=== PATIENT | male | born 1990 | race Caucasian/White ===

== ENCOUNTER 2024-04-11 12:43 | Inpatient (IN) | payer OTHER, SELFPAY ==
[2024-04-11] VITALS (7 sets, daily range): BP systolic 116–145; BP diastolic 76–89; PULSE 58–107; RESP 17–18; TEMP 36.5–36.9; O2SAT 96–99; BMI 29.0; BMI 25.5
--- NOTE | 2024-04-11 14:20 | EDS_ITS ---
<Statement entered by Rose Murdock MD - 04/11/24 22:06> I have personally performed a face to face assessment of the patient and have reviewed the AMANUEL Note. Patient was seen and examined with AMANUEL Dinorah Colmenares. I personally saw and examined this patient and agree with documentation. treatment, and plan. My luke findings are below: HPI: This is a 33-year-old male who presents to the emergency department for detox. The patient admits to using heroin and cocaine. The patient states he snorts and smokes the drugs of choice. No IV drug use. He denies any alcohol use. He states he does smoke tobacco. The patient states that he has been using for nearly 10 years. The patient states that he would like to be detoxed. He is here with his mother. He states he feels very anxious with some pain in his lower extremities, nausea and vomiting. No chest pain or dyspnea. Physical Exam: GEN: Alert, NAD HEAD: NC, AT HEENT: Moist mucous membranes. NECK: Supple, Full range of motion. CHEST: Normal, nontender HEART: Regular rate and rhythm. Normal capillary refill. LUNGS: Clear to auscultation bilaterally. ABD: Soft, NT, ND EXT: No cyanosis, edema. Normal ROM. Strength testing intact SKIN: Warm, dry. No rashes or lesions NEURO: Grossly intact. No deficits PSYCH: Anxious MDM: Patient presents to the emergency department for detox from heroin and cocaine. The patient was given IV fluids and Zofran in the emergency department. I also gave him 1 mg of Ativan as he was extremely anxious. Patient medically cleared in the emergency department will be admitted for detox. Rose Murdock M.D. HPI History of Present Illness Chief Complaint: Substance Abuse Narrative Narrative: 33-year-old male presents requesting detox from snorting heroin. Last use was 3 to 4 days ago. He states he has tried to detox at home before but around day 4 gets body aches and nauseous and cannot keep down fluids with diarrhea. He has never been to inpatient detox before. He is brought in by his mom for support. He states he also smokes about a pack of cigarettes a day and occasionally uses cocaine. He denies IV drug use. He has no chest pain or shortness of breath. PFSH PFSH Home Medications ?Medication ?Instructions ?Recorded ?Last Taken ?Type NK 04/11/24 Unknown History Allergy/AdvReac Type Severity Reaction Status Date / Time No Known Allergies Allergy Verified 04/11/24 12:47 Social History Smoking Status: Current every day smoker tobacco type: cigarettes ROS ROS ED ROS Narrative Constitutional: Negative for fever, chills, malaise. CVS: Negative for chest pain. Respiratory: Negative for shortness of breath. GI: Positive for nausea, vomiting, diarrhea. Negative for abdominal pain. EXAM Physical Exam Narrative Exam Narrative: CONST: Patient sitting in no acute distress. Flushed appearance. EYES: Normal inspection. NECK: Normal inspection. RESP: No respiratory distress, CTAB. CVS: Regular rate and rhythm, no murmur, no gallop. ABD: Soft and nontender, no guarding or rebound, nondistended SKIN: Color normal, no rash, warm, dry, intact. EXTREMITIES: Normal appearance, no pedal edema. NEURO: Alert and answering questions appropriately. PSYCH: Normal affect. Const Vital Signs: 04/11/24 12:44 04/11/24 15:00 04/11/24 16:00 Temperature 98.1 F Temperature Source Temporal Pulse Rate 100 58 L 60 Respiratory Rate 17 18 18 Blood Pressure 134/89 H 143/89 H 145/76 H Blood Pressure Mean 104 107 99 Pulse Ox 96 97 Oxygen Delivery Method Room Air Room Air 04/11/24 16:03 Temperature 98.4 F Temperature Source Pulse Rate 62 Respiratory Rate 18 Blood Pressure 145/76 H Blood Pressure Mean 99 Pulse Ox 97 Oxygen Delivery Method MDM MDM MDM Narrative Medical decision making narrative: History gathered from: Patient and mom Patient snorts heroin and cocaine. Last use around 3 days ago. Complains of bodyaches, nausea vomiting, and diarrhea. He appears well and nontoxic. Afebrile stable vital signs. Exam overall benign. CBC shows normal white count of 7.1, hemoglobin slightly elevated 17.1, normal electrolytes and renal function. Alcohol negative. Drug screen ordered. I ordered Zofran ODT but afterwards he said he cannot drink fluids so I ordered 1 L IV fluids. When the attending evaluated he complained of anxiety and was also given Bentyl and Ativan. Case was discussed with the hospitalist for admission for opiate detox. Lab Data Attestation: I reviewed the patient's lab results. Labs: Laboratory Results - last 24 hr 04/11/24 15:07 WBC 7.1 RBC 5.77 Hgb 17.1 H Hct 49.0 MCV 84.9 MCH 29.6 MCHC 34.9 RDW Std Deviation 37.2 RDW Coeff of Suresh 12.1 Plt Count 288 MPV 9.3 Immature Gran % (Auto) 0.600 Neut % (Auto) 86.2 H Lymph % (Auto) 9.7 L [place] % (Auto) 3.0
[2024-04-11] MEDS: Ondansetron ODT 4 MG Tablet PO (14:44)
[2024-04-11] MEDS: 0.9% Normal Saline (1000mL) 1,000 ML 999 ML IV (15:03)
[2024-04-11 15:16] LABS: Absolute Lymphocyte Count 0.69 X10^3/uL (0.83-4.51); Absolute Neutrophil Count 6.1 X10^3/uL (2.0-7.7); Basophil# 0.03 X10^3/uL; Basophil% 0.4 % (0-1); Eosinophil# 0.01 X10^3/uL; Eosinophils% 0.1 % (0-5); Hemoglobin 17.1 g/dL (13.0-16.5); Lymphocyte # 0.69 X10^3/ul (0.83-4.51); Lymphocyte % 9.7 % (19-41); Mean Corp Hgb Conc 34.9 g/dL (32-36); Mean Corpuscular Hgb 29.6 pg (27.0-32.0); Mean Corpuscular Volume 84.9 fL (80-94); Mean Platelet Vol. 9.3 fl (6.2-12.0); Monocyte# 0.21 X10^3/uL; NRBC Flagged by Analyzer 0 % (0-5); Neutrophil # 6.11 X10^3/uL (2.7-7.7); Neutrophil % 86.2 % (47-70); Platelet Count 288 K/mm3 (150-450); RBC Distribution Width CV 12.1 % (11.6-14.6); RBC Distribution Width SD 37.2 fl (35.1-43.9); Red Blood Count 5.77 M/mm3 (4.6-6.2); White Blood Count 7.1 K/mm3 (4.4-11.0)
[2024-04-11] MEDS: LORazepam 2 MG/ML Syringe 1 MG IV (15:47)
[2024-04-11] MEDS: Dicyclomine 10 MG Capsule 20 MG PO (15:47)
[2024-04-11 15:50] LABS: AST(SGOT) 15 U/L (15-37); Alanine Aminotransfer ALT/SGPT 17 U/L (16-61); Albumin, Serum 4.3 g/dL (3.2-5.0); Alkaline Phosphatase 110 U/L (45-117); Anion Gap 8 (5-15); BUN 16 mg/dL (7-18); BUN/Creat Ratio 16.5 RATIO (10-20); Calcium,Total 9.4 mg/dL (8.5-10.1); Chloride 107 mmol/L (98-107); Creatinine, Serum 0.97 mg/dL (0.70-1.30); EST Glomerular Filtration Rate 95 mL/min (>60); Est Glom Filt Rate - Afr Amer 115 mL/min (>60); Globulin 4.2 g/dL (2.2-4.2); Glucose 109 mg/dL (74-106); Potassium 3.6 mmol/L (3.5-5.1); Protein, Total 8.5 g/dL (6.4-8.2); Sodium Level 139 mmol/L (136-145)
--- NOTE | 2024-04-11 16:04 | NURSING ---
DR BINTA SUTHERLAND
--- NOTE | 2024-04-11 16:06 | HP.PCM.HOS_ITS ---
HPI - General General Date of Admission: 04/11/24 Date of Service: 04/11/24 Chief Complaint: Opiate detox HPI Narrative ANTONIO SMALL, is a 33 M who presented to [facility] ED on 04/11/2024 requesting opiate detoxification. Saw patient at bedside in the ED, patient's mom present. Patient was flushed in the face and mildly agitated appearing but was otherwise laying comfortably in bed, conversing normally and in no acute distress. Patient has been snorting heroin on a regular basis. Last use was 3 to 4 days ago. He was trying to detox at home but has had significant nausea with vomiting and bodyaches and has not been able to keep hardly any food or drink down. Has also been having a fair amount of diarrhea. Patient has never been to inpatient detox before. Was brought in by his mom for support. Patient otherwise has no significant past medical history, takes no home medications. He does smoke about a pack of cigarettes daily and occasionally uses cocaine. Denies any IV drug use. Denies any other pain or discomfort currently. Denies any fevers or chills. No other acute concerns at this time. Vitals in ED notable for mild sinus tachycardia with heart rate in the 100s, otherwise hemodynamically stable. Labs with hemoglobin 17.1, otherwise unremarkable. No imaging was obtained in the ED. [facility] Medical History Substance abuse Anxiety Depression Smoker Home Medications ?Medication ?Instructions ?Recorded ?Last Taken ?Type NK 04/11/24 Unknown History Allergy/AdvReac Type Severity Reaction Status Date / Time No Known Allergies Allergy Verified 04/11/24 12:47 Social History Smoking Status: Current every day smoker tobacco type: cigarettes ROS Constitutional Constitutional: Reports fatigue and malaise; Denies chills or fever(s) Cardiovascular Cardiovascular: Denies chest pain Respiratory/Chest Respiratory/Chest: Denies shortness of breath at rest Gastrointestinal Gastrointestinal: Reports diarrhea, nausea and vomiting; Denies abdominal pain Musculoskeletal Musculoskeletal: Reports myalgias Neurologic Neurologic: Denies dizziness, focal weakness or headache(s) Psychiatric Psychiatric: Reports anxiety Vital Signs Vital Signs Vital Signs: 04/11/24 12:44 04/11/24 15:00 04/11/24 16:00 Temperature 98.1 F Temperature Source Temporal Pulse Rate 100 58 L 60 Respiratory Rate 17 18 18 Blood Pressure 134/89 H 143/89 H 145/76 H Blood Pressure Mean 104 107 99 Pulse Ox 96 97 Oxygen Delivery Method Room Air Room Air 04/11/24 16:03 Temperature 98.4 F Temperature Source Pulse Rate 62 Respiratory Rate 18 Blood Pressure 145/76 H Blood Pressure Mean 99 Pulse Ox 97 Oxygen Delivery Method Weight Weight: 99.79 kg Body Mass Index (BMI) 29.0 Physical Exam Const alert, oriented x3, no apparent distress and average body habitus Constitutional Narrative: Younger male, appears mildly agitated and flushed in the face, otherwise laying comfortably in bed, conversing normally, no acute distress. General Appearance: cooperative and comfortable HEENT normocephalic, head/scalp atraumatic, hearing grossly normal bilaterally, nasal mucous membranes and turbinates normal and moist oral mucous membranes Eyes PERRL, EOMs intact bilaterally and conjunctivae normal Neck full ROM Chest inspection of chest normal Resp normal respiratory effort, normal air movement, no use of accessory muscles and clear to auscultation bilaterally Cardio no murmurs and peripheral pulses 2+ throughout Cardio Narrative: Tachycardic, regular rhythm. GI normal to inspection, nondistended, normoactive bowel sounds, soft to palpation, non-tender and non-distended Back/Spine normal ROM Extremity normal to inspection, full ROM and no pedal edema Skin no rashes or lesions noted Neuro moves all extremities and no focal motor deficits Speech: speech normal Psych mental status grossly normal Mood & Affect: anxious Results Lab / Micro Data 04/11/24 15:07 04/11/24 15:07 Labs: Laboratory Results - last 24 hr 04/11/24 15:07: WBC 7.1, RBC 5.77, Hgb 17.1 H, Hct 49.0, MCV 84.9, MCH 29.6, MCHC 34.9, RDW Std Deviation 37.2, RDW Coeff of Suresh 12.1, Plt Count 288, MPV 9.3, Immature Gran % (Auto) 0.600, Neut % (Auto) 86.2 H, Lymph % (Auto) 9.7 L, [place] % (Auto) 3.0, Eos % (Auto) 0.1, Baso % (Auto) 0.4, Absolute Neuts (auto) 6.1, Absolute Lymphs (auto) 0.69 L, Nucleated RBC % 0, Sodium 139, Potassium 3.6, Chloride 107, Carbon Dioxide 24.0, Anion Gap 8, BUN 16, Creatinine 0.97, Estim Creat Clear Calc 134.60, Est GFR (MDRD) Af Amer 115, Est GFR (MDRD) Non-Af 95, BUN/Creatinine Ratio 16.5, Glucose 109 H, Calcium 9.4, Total Bilirubin 1.00, AST 15, ALT 17, Alkaline Phosphatase 110, Total Protein 8.5 H, Albumin 4.3, Globulin 4.2, Albumin/Globulin Ratio 1.0, Ethyl Alcohol 5.0 Assessment & Plan Assessment/Plan (1) Opioid abuse: (2) Desire for detoxification: PLAN: Plan Patient is a 33-year-old male who presented [facility] ED on 04/11/2024 for opiate detoxification. 1. Opiate abuse with request for detoxification ? Admit under inpatient status to [facility]. Reported snorting heroin regularly, last use 3 to 4 days ago. No IV drug use. Urine drug screen pending. Addiction medicine consulted. Will start Subutex taper with other as needed medications per opiate withdrawal order set. Monitor. 2. Tobacco abuse ? Current smoker, smokes about 1 pack/day. Nicotine patch and gum ordered per patient request. Encouraged cessation. DVT prophylaxis: Low risk, ambulate CODE STATUS: Full code, verified Expected disposition: Home, 2 to 3 days Total clinical time spent by myself addressing the patient's medical issues, reviewing all the data, and collaborating with patient's care team: 40 minutes. Charges/Coding Visit Charges Inpatient E&M: 37710 Init Hosp L1
--- NOTE | 2024-04-11 16:09 | NURSING ---
MED SURG [facility] OPIATE DETOX
[2024-04-11] MEDS: hydrOXYzine PAM 25 MG Capsule 50 MG PO (17:34)
[2024-04-11] MEDS: Acetaminophen 325 MG Tablet 650 MG PO (17:34)
[2024-04-11] MEDS: Buprenorphine HCl 2 MG TAB.SUBL SL (17:35)
[2024-04-11] MEDS: Methocarbamol 750 MG Tablet PO (17:35)
[2024-04-12] MEDS: traZODone 100 MG Tablet PO ×2 (00:37→19:56)
[2024-04-12] MEDS: Buprenorphine HCl 2 MG TAB.SUBL SL ×3 (00:38→16:51)
[2024-04-12 02:02] LABS: Amphetamine Urine VISTA NEGATIVE (<1000 ng/mL); Barbiturate Urine VISTA NEGATIVE (< 200 ng/mL); Benzodiazepine Urine VISTA NEGATIVE (< 200 ng/mL); Cocaine Urine VISTA POSITIVE (< 300 ng/mL); Ecstacy Urine VISTA NEGATIVE (< 500 ng/mL); Methadone Urine VISTA NEGATIVE (< 300 ng/mL); PCP Urine VISTA NEGATIVE (< 25 ng/mL); THC Urine VISTA NEGATIVE (< 50 ng/mL); Vista UDS pH Range 5
[2024-04-12 06:54] LABS: Hematocrit 46.2 % (40-54); Hemoglobin 16.5 g/dL (13.0-16.5); Mean Corp Hgb Conc 35.7 g/dL (32-36); Mean Corpuscular Hgb 29.9 pg (27.0-32.0); Mean Corpuscular Volume 83.7 fL (80-94); Mean Platelet Vol. 9.4 fl (6.2-12.0); Platelet Count 252 K/mm3 (150-450); RBC Distribution Width CV 12.1 % (11.6-14.6); RBC Distribution Width SD 36.8 fl (35.1-43.9); Red Blood Count 5.52 M/mm3 (4.6-6.2); White Blood Count 6.8 K/mm3 (4.4-11.0)
[2024-04-12 07:29] LABS: Anion Gap 5 (5-15); BUN 12 mg/dL (7-18); BUN/Creat Ratio 14.5 RATIO (10-20); Calcium,Total 9.3 mg/dL (8.5-10.1); Chloride 113 mmol/L (98-107); Creatinine, Serum 0.83 mg/dL (0.70-1.30); EST Glomerular Filtration Rate 114 mL/min (>60); Est Glom Filt Rate - Afr Amer 137 mL/min (>60); Estimated Creatinine Clearance 147.18 ml/min; Glucose 108 mg/dL (74-106); Potassium 3.6 mmol/L (3.5-5.1); Sodium Level 141 mmol/L (136-145)
[2024-04-12 07:30] VITALS: O2SAT 98
[2024-04-12] MEDS: Methocarbamol 750 MG Tablet PO (07:36)
[2024-04-12] MEDS: Gabapentin 300 MG Capsule PO (07:36)
[2024-04-12 08:09] VITALS: BP 124/96; PULSE 89; RESP 16; TEMP 36.8; O2SAT 100
--- NOTE | 2024-04-12 10:54 | CASEMGMT ---
Sarahi from [place] called to confirm pt is at hospital and is safe. Asked to speak with pt, provided phone to pt for Sarahi to speak with him. Pt will put deputy coroner light when finished. Charge nurse aware.
--- NOTE | 2024-04-12 11:17 | ADDICTION ---
Addiction therapist met with client to complete RAMP assessments. All assessments were completed and an addiction workbook was given for pt to go over. Pt reports that he spoke with a coordinator at the [facility] in [place]. He plans to do outpatient treatment. The [place] contacted him here in the hospital to discuss follow up.
[2024-04-12] MEDS: Acetaminophen 325 MG Tablet 650 MG PO (11:32)
[2024-04-12] MEDS: hydrOXYzine PAM 25 MG Capsule 50 MG PO ×2 (11:32→19:56)
--- NOTE | 2024-04-12 11:32 | PN.HOSP_ITS ---
Reason for Visit Reason for Visit: Diagnoses Opioid abuse, uncomplicated (04/11/24) Subjective Subjective No acute events overnight. Saw patient at bedside this morning. Patient was laying comfortably in bed, conversing normally, in no acute distress. He appeared less agitated today than yesterday. He stated that the Subutex and other as needed medications that he took were helpful for his withdrawal symptoms. He admitted that he still was not that hungry or thirsty but he was able to keep some food and drink down this morning. No other acute concerns today. Objective Data Objective Data Vital Signs: Vital Signs Temp Pulse Resp BP Pulse Ox O2 Del Method 98.2 F 89 16 124/96 H 100 Room Air 04/12/24 08:09 04/12/24 08:09 04/12/24 08:09 04/12/24 08:09 04/12/24 08:09 04/12/24 08:09 Oxygen Delivery Method Room Air Weight: 90.4 kg Body Mass Index (BMI) 25.5 Intake & Output: Intake and Output for Last 24 Hours 04/10/24 04/11/24 04/12/24 23:59 23:59 23:59 Intake Total 1600 / 1600 Balance 1600 / 1600 Lab / Micro Data 04/12/24 06:36 04/12/24 06:36 Labs: Laboratory Results - last 24 hr 04/11/24 15:07: WBC 7.1, RBC 5.77, Hgb 17.1 H, Hct 49.0, MCV 84.9, MCH 29.6, MCHC 34.9, RDW Std Deviation 37.2, RDW Coeff of Suresh 12.1, Plt Count 288, MPV 9.3, Immature Gran % (Auto) 0.600, Neut % (Auto) 86.2 H, Lymph % (Auto) 9.7 L, [place] % (Auto) 3.0, Eos % (Auto) 0.1, Baso % (Auto) 0.4, Absolute Neuts (auto) 6.1, Absolute Lymphs (auto) 0.69 L, Nucleated RBC % 0, Sodium 139, Potassium 3.6, Chloride 107, Carbon Dioxide 24.0, Anion Gap 8, BUN 16, Creatinine 0.97, Estim Creat Clear Calc 134.60, Est GFR (MDRD) Af Amer 115, Est GFR (MDRD) Non-Af 95, BUN/Creatinine Ratio 16.5, Glucose 109 H, Calcium 9.4, Total Bilirubin 1.00, AST 15, ALT 17, Alkaline Phosphatase 110, Total Protein 8.5 H, Albumin 4.3, Globulin 4.2, Albumin/Globulin Ratio 1.0, Ethyl Alcohol 5.0 04/12/24 01:20: Urine Opiates Screen NEGATIVE, Urine Methadone Screen NEGATIVE, Ur Barbiturates Screen NEGATIVE, Ur Phencyclidine Scrn NEGATIVE, Ur Amphetamines Screen NEGATIVE, MDMA (Ecstasy) Screen NEGATIVE, U Benzodiazepines Scrn NEGATIVE, Urine Cocaine Screen POSITIVE H, U Cannabinoids Screen NEGATIVE, Ur Drug Screen Comment 04/12/24 06:36: WBC 6.8, RBC 5.52, Hgb 16.5, Hct 46.2, MCV 83.7, MCH 29.9, MCHC 35.7, RDW Std Deviation 36.8, RDW Coeff of Suresh 12.1, Plt Count 252, MPV 9.4, Sodium 141, Potassium 3.6, Chloride 113 H, Carbon Dioxide 23.0, Anion Gap 5, BUN 12, Creatinine 0.83, Estim Creat Clear Calc 147.18, Est GFR (MDRD) Af Amer 137, Est GFR (MDRD) Non-Af 114, BUN/Creatinine Ratio 14.5, Glucose 108 H, Calcium 9.3 Physical Exam Const alert, oriented x3, no apparent distress and average body habitus Constitutional Narrative: Younger male, laying comfortably in bed, conversing normally, in no acute distress. General Appearance: cooperative and comfortable HEENT normocephalic, head/scalp atraumatic, hearing grossly normal bilaterally, nasal mucous membranes and turbinates normal and moist oral mucous membranes Eyes PERRL, EOMs intact bilaterally and conjunctivae normal Neck full ROM Chest inspection of chest normal Resp normal respiratory effort, normal air movement, no use of accessory muscles and clear to auscultation bilaterally Cardio regular rate, regular rhythm, no murmurs and peripheral pulses 2+ throughout GI normal to inspection, nondistended, normoactive bowel sounds, soft to palpation, non-tender and non-distended Back/Spine normal ROM Extremity normal to inspection, full ROM and no pedal edema Skin no rashes or lesions noted Neuro moves all extremities and no focal motor deficits Speech: speech normal Psych mental status grossly normal Mood & Affect: anxious Assessment & Plan Assessment/Plan (1) Opioid abuse: (2) Desire for detoxification: PLAN: Plan Patient is a 33-year-old male who presented [facility] ED on 04/11/2024 for opiate detoxification. 1. Opiate abuse with request for detoxification, cocaine abuse ? Reported snorting heroin regularly, last use 3 to 4 days prior to admission. No IV drug use. Also reported to occasionally starting cocaine. Urine drug screen positive only for cocaine. Started on Subutex taper with other as needed medications per opiate withdrawal order set on admit with good control of withdrawal symptoms. Addiction medicine following, planning for outpatient therapy on discharge. 2. Tobacco abuse ? Current smoker, smokes about 1 pack/day. Nicotine patch and gum ordered per patient request. Encouraged cessation. DVT prophylaxis: Low risk, ambulate CODE STATUS: Full code, verified Expected disposition: Home, 1 to 2 days Total clinical time spent by myself addressing the patient's medical issues, reviewing all the data, and collaborating with patient's care team: 25 minutes. Charges/Coding Visit Charges Inpatient E&M: 51632 Subs Hosp L1
[2024-04-12 11:37] VITALS: BP 126/83; PULSE 65; RESP 16; TEMP 36.8; O2SAT 100
[2024-04-12 15:16] VITALS: BP 133/86; PULSE 74; RESP 16; TEMP 36.8; O2SAT 99
[2024-04-12] MEDS: Dicyclomine 10 MG Capsule 20 MG PO (16:51)
[2024-04-12] MEDS: cloNIDine HCl 0.1 MG Tablet PO (19:56)
[2024-04-12 20:32] VITALS: BP 122/76; PULSE 63; RESP 16; TEMP 36.9; O2SAT 100
[2024-04-13] MEDS: Buprenorphine HCl 2 MG TAB.SUBL SL ×3 (01:00→17:24)
[2024-04-13 04:50] VITALS: BP 133/90; PULSE 63; RESP 18; TEMP 36.7; O2SAT 100
[2024-04-13] MEDS: Methocarbamol 750 MG Tablet PO ×3 (04:50→17:24)
[2024-04-13] MEDS: hydrOXYzine PAM 25 MG Capsule 50 MG PO ×3 (04:50→17:24)
[2024-04-13 08:14] VITALS: O2SAT 96
[2024-04-13 09:16] VITALS: BP 128/92; PULSE 69; RESP 16; TEMP 36.8; O2SAT 100
[2024-04-13] MEDS: Gabapentin 300 MG Capsule PO (09:27)
[2024-04-13] MEDS: cloNIDine HCl 0.1 MG Tablet PO ×2 (09:27→17:24)
[2024-04-13] MEDS: Ondansetron 8 MG Tablet PO (09:27)
[2024-04-13] MEDS: Dicyclomine 10 MG Capsule 20 MG PO ×2 (09:27→17:24)
--- NOTE | 2024-04-13 12:39 | PCM.PN.HOSP ---
Reason for Visit Reason for Visit: Diagnoses Opioid abuse, uncomplicated (04/11/24) Subjective Subjective No acute events overnight. Saw patient at bedside this morning. Sitting up comfortably in bed, conversing normally, in no acute distress. Continues to feel improved from previous days. Withdrawal symptoms are well-controlled on Subutex and other as needed medications per opiate withdrawal order set. No other acute concerns today. Objective Data Objective Data Vital Signs: Vital Signs Temp Pulse Resp BP Pulse Ox O2 Del Method 98.3 F 69 16 128/92 H 100 Room Air 04/13/24 09:16 04/13/24 09:16 04/13/24 09:16 04/13/24 09:16 04/13/24 09:16 04/13/24 09:16 Oxygen Delivery Method Room Air Weight: 90.4 kg Body Mass Index (BMI) 25.5 Intake & Output: Intake and Output for Last 24 Hours 04/11/24 04/12/24 04/13/24 23:59 23:59 23:59 Intake Total 1600 / 1600 650 / 650 Balance 1600 / 1600 650 / 650 Medical Nutrition Assessment Dietitian: Malnutrition Criteria Met Start: 04/12/24 13:08 Freq: Status: Active Protocol: Document 04/12/24 13:08 SLA (Rec: 04/12/24 13:08 SLA [id number]) Nutrition Malnutrition Evidence of Malnutrition Exists Yes Malnutrition (severe): Acute Illness/Injury Evidenced By Suboptimal Energy Intake ( Severe),Weight Loss (Severe) Clinical Problem Acute Disease or Injury Related Malnutrition Etiology related to substance abuse and inadequate energy intake Signs/Symptoms as evidenced by ~7% wt loss x < 1 month and <75% po intake in past 5 days Status Active Problem Recommendation Dietitian Recommendations/Changes Continue liberal regular diet Will order vanilla ensure plus high protein tid w/ meals for increased nutrition if consumed. Lab / Micro Data 04/12/24 06:36 04/12/24 06:36 Physical Exam Const alert, oriented x3, no apparent distress and average body habitus Constitutional Narrative: Younger male, laying comfortably in bed, conversing normally, in no acute distress. General Appearance: cooperative and comfortable HEENT normocephalic, head/scalp atraumatic, hearing grossly normal bilaterally, nasal mucous membranes and turbinates normal and moist oral mucous membranes Eyes PERRL, EOMs intact bilaterally and conjunctivae normal Neck full ROM Chest inspection of chest normal Resp normal respiratory effort, normal air movement, no use of accessory muscles and clear to auscultation bilaterally Cardio regular rate, regular rhythm, no murmurs and peripheral pulses 2+ throughout GI normal to inspection, nondistended, normoactive bowel sounds, soft to palpation, non-tender and non-distended Back/Spine normal ROM Extremity normal to inspection, full ROM and no pedal edema Skin no rashes or lesions noted Neuro moves all extremities and no focal motor deficits Speech: speech normal Psych mental status grossly normal Mood & Affect: anxious Assessment & Plan Assessment/Plan (1) Opioid abuse: (2) Desire for detoxification: PLAN: Plan Patient is a 33-year-old male who presented [facility] ED on 04/11/2024 for opiate detoxification. 1. Opiate abuse with request for detoxification, cocaine abuse ? Reported snorting heroin regularly, last use 3 to 4 days prior to admission. No IV drug use. Also reported to occasionally starting cocaine. Urine drug screen positive only for cocaine. Started on Subutex taper with other as needed medications per opiate withdrawal order set on admit with good control of withdrawal symptoms. Addiction medicine following, planning for outpatient therapy on discharge. 2. Tobacco abuse ? Current smoker, smokes about 1 pack/day. Nicotine patch and gum ordered per patient request. Encouraged cessation. DVT prophylaxis: Low risk, ambulate CODE STATUS: Full code, verified Expected disposition: Home, 1 to 2 days Total clinical time spent by myself addressing the patient's medical issues, reviewing all the data, and collaborating with patient's care team: 25 minutes. Charges/Coding Visit Charges Inpatient E&M: 71497 [facility] Hosp L1
--- NOTE | 2024-04-13 15:28 | CASEMGMT ---
Social Work EARLENE Mcclain from the [place] called EARLENE, let EARLENE know if anything is needed at discharge to call her: [phone], [id number]. For any follow up appts, she states to call Enrrique: [phone], [phone]. EARLENE will let the pt navigator w/YESIKA know. VAMSI Maldonado
[2024-04-13 17:18] VITALS: BP 108/72; PULSE 64; RESP 18; TEMP 36.8; O2SAT 100
[2024-04-13 21:20] VITALS: BP 110/69; PULSE 65; RESP 16; TEMP 36.6; O2SAT 98
[2024-04-13] MEDS: traZODone 100 MG Tablet PO (21:26)
[2024-04-14] MEDS: hydrOXYzine PAM 25 MG Capsule 50 MG PO ×2 (00:38→08:57)
[2024-04-14 04:30] VITALS: BP 114/75; PULSE 58; RESP 16; TEMP 36.6; O2SAT 98
[2024-04-14] MEDS: Buprenorphine HCl 2 MG TAB.SUBL SL (04:57)
[2024-04-14] MEDS: cloNIDine HCl 0.1 MG Tablet PO (05:00)
[2024-04-14] MEDS: Methocarbamol 750 MG Tablet PO (05:00)
[2024-04-14 08:21] VITALS: O2SAT 95
[2024-04-14] MEDS: Dicyclomine 10 MG Capsule 20 MG PO (08:57)
[2024-04-14 08:58] VITALS: BP 106/69; PULSE 56; RESP 18; TEMP 36.6; O2SAT 98
--- NOTE | 2024-04-14 09:51 | CASEMGMT ---
[facility] called and requested update on pt. She is aware pt will be dc'ing today and the [facility].
--- NOTE | 2024-04-14 10:43 | PCM.DC ---
Discharge Instructions Diet Discharge Diet: No restrictions Activity Discharge Activity: No Restrictions Follow Up Care Test Results: Test results from this visit will be discussed in further detail at your follow-up appointment, if applicable. Discharge Plan Admission Admit Date/Time: 04/11/24 16:04 Primary Reason for Your Visit: opiate detox Attending Provider: Dipak Raymundo Primary Care Provider: Care Physician,No Primary Discharge Orders/Prescriptions Prescriptions: No Action NK Referrals / Follow Up: Care Physician,No Primary [Primary Care Provider] - Disposition Disposition (needs filled in before D/C Order can be placed): Home, Self Care
--- NOTE | 2024-04-14 10:44 | DS.PCM_ITS ---
Providers Date of Admission: 04/11/24 Date of Discharge: 04/14/24 Primary Care Physician: No Primary Care Phys Reason For Visit: OPIATE DETOX Diagnosis Discharge Diagnosis (1) Opioid abuse: Status: Acute Code(s): F11.10 - Opioid abuse, uncomplicated (2) Desire for detoxification: Status: Acute Medications at Discharge Home Medications NK 04/11/24 Hospital Course Operations None Procedures None Summary of Care Provided Minutes Spent on Discharge: 25 Hospital Course: Patient is a 33-year-old male who presented [facility] ED on 04/11/2024 for opiate detoxification. Hospital course as noted below. Patient discharged home in stable condition on 04/14 with plan for outpatient treatment going forward. 1. Opiate abuse with request for detoxification, cocaine abuse ? Reported snorting heroin regularly, last use 3 to 4 days prior to admission. No IV drug use. Also reported to occasionally starting cocaine. Urine drug screen positive only for cocaine. Treated with Subutex taper with other as needed medications per opiate withdrawal order set with good control of withdrawal symptoms. Addiction medicine followed, planning for outpatient therapy on discharge. 2. Tobacco abuse ? Current smoker, smokes about 1 pack/day. Nicotine patch and gum ordered per patient request. Encouraged cessation on discharge. Total clinical time spent by myself addressing the patient's medical issues, reviewing all the data, and collaborating with patient's care team: 25 minutes. Physical Exam Const alert, oriented x3, no apparent distress and average body habitus Constitutional Narrative: Younger male, laying comfortably in bed, conversing normally, in no acute distress. General Appearance: cooperative and comfortable HEENT normocephalic, head/scalp atraumatic, hearing grossly normal bilaterally, nasal mucous membranes and turbinates normal and moist oral mucous membranes Eyes PERRL, EOMs intact bilaterally and conjunctivae normal Neck full ROM Chest inspection of chest normal Resp normal respiratory effort, normal air movement, no use of accessory muscles and clear to auscultation bilaterally Cardio regular rate, regular rhythm, no murmurs and peripheral pulses 2+ throughout GI normal to inspection, nondistended, normoactive bowel sounds, soft to palpation, non-tender and non-distended Back/Spine normal ROM Extremity normal to inspection, full ROM and no pedal edema Skin no rashes or lesions noted Neuro moves all extremities and no focal motor deficits Speech: speech normal Psych mental status grossly normal Medical Records Data Medical Nutrition Assessment Dietitian: Malnutrition Criteria Met Start: 04/12/24 13:08 Freq: Status: Active Protocol: Document 04/12/24 13:08 HELENA (Rec: 04/12/24 13:08 SLA [id number]) Nutrition Malnutrition Evidence of Malnutrition Exists Yes Malnutrition (severe): Acute Illness/Injury Evidenced By Suboptimal Energy Intake ( Severe),Weight Loss (Severe) Clinical Problem Acute Disease or Injury Related Malnutrition Etiology related to substance abuse and inadequate energy intake Signs/Symptoms as evidenced by ~7% wt loss x < 1 month and <75% po intake in past 5 days Status Active Problem Recommendation Dietitian Recommendations/Changes Continue liberal regular diet Will order vanilla ensure plus high protein tid w/ meals for increased nutrition if consumed. Weight / BMI Weight Weight: 90.4 kg Body Mass Index (BMI) 25.5 ABG / Lab / Microbiology Data 04/12/24 06:36 04/12/24 06:36 D/C Instructions Discharge Diet: No restrictions Meaningful Use Info Meaningful Use Meaningful Use Diagnoses (Choose all that apply): None applicable Ischemic Stroke Statin Dosing Therapy Reference: STATIN DOSE THERAPY REFERENCE: * Patients > 75 years receive moderate or high dose statin therapy. * Patients 75 years or YOUNGER should receive HIGH intensity statin dose unless contraindicated. You will be required to document reason for non-treatment if statin daily dose does not meet guidelines. HIGH DOSE STATIN THERAPY DAILY Atorvastatin > than or = to 40 mg Rosuvastatin > than or = to 20 mg Amlodipine + Atorvastatin > than or = to 2.5/40 mg Ezetimibe + Simvastatin 10/80 mg Simvastatin 80mg Discharge Plan Admission Admit Date/Time: 04/11/24 16:04 Primary Reason for Your Visit: opiate detox Attending Provider: Dipak Raymundo Primary Care Provider: Care Physician,Whitney Primary Discharge Orders/Prescriptions Prescriptions: No Action NK Referrals / Follow Up: Care Physician,No Primary [Primary Care Provider] - Disposition Disposition (needs filled in before D/C Order can be placed): Home, Self Care Charges/Coding Visit Charges Inpatient E&M: 77476 Disch Hosp
== END 2024-04-14 11:07 | disposition home or self-care (01) | DRG 896 ==
LOC: ED 15:14 → MS3 16:14
PROVIDERS: Physician Assistant; Admitting Provider Hospitalist; Emergency Provider Emergency Medicine; Visit Provider Hospitalist
DX: F11.10 Opioid abuse, uncomplicated (principal); E43 Unspecified severe protein-calorie malnutrition; F14.10 Cocaine abuse, uncomplicated; F17.210 Nicotine dependence, cigarettes, uncomplicated; Z68.25 Body mass index [BMI] 25.0-25.9, adult
CPT/HCPCS: 80048; 80053; 80307; 80320; 85025; 85027; 97802; 99284; A4216; G0480